=== PATIENT | female | born 1955 | race Caucasian/White ===

== ENCOUNTER → 2017-11-10 | Outpatient (CLI) | payer OTHER | END | disposition home or self-care (01) | LOC: NUCLEAR 07:24 | DX: I25.10 Atherosclerotic heart disease of native coronary artery without angina pectoris (principal) | CPT/HCPCS: A9500 ×2; 93017; 78452 ==

== ENCOUNTER 2017-12-08 09:02 | Outpatient (CLI) | payer OTHER | END 2017-12-08 10:00 | disposition home or self-care (01) | LOC: NUCLEAR 09:02 | DX: I82.401 Acute embolism and thrombosis of unspecified deep veins of right lower extremity (principal) ==